=== PATIENT | female | born 1980 | race African-American/Black ===

== ENCOUNTER 2016-03-15 09:33 | Emergency (ER) | payer BC, OTHER ==
[2016-03-15 09:39] VITALS: BP 131/77; PULSE 70; TEMP 97.9; BMI 30.7
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
[2016-03-15 10:29] LABS: URINE APPEARANCE CLEAR; URINE BILIRUBIN NEGATIVE (NEGATIVE); URINE COLOR YELLOW; URINE GLUCOSE (UA) NEGATIVE (NEGATIVE); URINE KETONE NEGATIVE (NEGATIVE); URINE LEUK ESTERASE NEGATIVE (NEGATIVE); URINE NITRITE NEGATIVE (NEGATIVE); URINE PROTEIN NEGATIVE (NEGATIVE); URINE UROBILINOGEN NEGATIVE E.U./dl (0.2-1.0)
[2016-03-15 10:30] LABS: URINE BLOOD 1+ (NEGATIVE)
[2016-03-15] MEDS ORDERED: IBUPROFEN 600 MG TABLET (FP) PO ONE ×2 (10:32→10:34)
[2016-03-15 10:38] LABS: URINE BACTERIA RARE /hpf (NONE SEEN); URINE MUCUS RARE; URINE RBC 1 /hpf (0-3); URINE WBC 1 /hpf (3-5)
== END 2016-03-15 10:36 | disposition home or self-care (01) ==
LOC: JERFT 09:33
DX: M54.5 Low back pain (principal); V43.62XA Car passenger injured in collision with other type car in traffic accident, initial encounter; Y92.414 Local residential or business street as the place of occurrence of the external cause; Y93.89 Activity, other specified; Y99.8 Other external cause status
CPT/HCPCS: 81003; 81015; 84703; 99281-25

== ENCOUNTER 2016-07-11 23:48 | Emergency (ER) | payer BC, OTHER ==
[2016-07-11 23:59] VITALS: BP 147/88; PULSE 68; TEMP 97.1; BMI 31.6
--- NOTE | 2016-07-12 00:02 | PDOC ---
History of Present Illness - General Chief Complaint: Vaginal Bleeding Stated Complaint: VAGINAL BLEEDING Time Seen by Provider: 07/12/16 00:02 History Source: Patient Exam Limitations: No Limitations - History of Present Illness Travel History: No Initial Comments: 07/12/16 00:38 LMP ?May 31 IVF at [facility] Transfer one(1) egg on 07/02 OB: [facility] Informed on July 11 of +preg 36-year-old female with no past medical history presents to the emergency department complaining of one episode of vaginal spotting 2 hours ago prior to arriving to the emergency department. Patient denies fever, chills, nausea/ vomiting, chest pain, shortness of breath, abdominal pains, flank pains, urinary symptoms: Frequency/urgency/hesitancy, burning upon urination. Patient states after voiding, she wiped and noticed 2 spots of vaginal bloody spots. Timing/Duration: reports: other (vag spotting/subsided) Past History - Travel Traveled outside of the country in the last 30 days: No Close contact w/someone who was outside of country & ill: No - Past Medical History Allergies/Adverse Reactions: Allergies Allergy/AdvReac Type Severity Reaction Status Date / Time No Known Allergies Allergy Verified 07/11/16 23:52 Home Medications: Ambulatory Orders NK [No Known Home Medication] 07/12/16 - Immunization History Immunization Up to Date: Yes - Psycho/Social/Smoking Cessation Hx Anxiety: No Suicidal Ideation: No Smoking History: Never smoked Have you smoked in the past 12 months: No Information on smoking cessation initiated: No Hx Alcohol Use: No Drug/Substance Use Hx: No Substance Use Type: None Review of Systems - Review of Systems Able to Perform ROS?: Yes Comments:: 07/12/16 00:37 CONSTITUTIONAL: Absent: fever, chills, diaphoresis, generalized weakness, malaise, loss of appetite HEENT: Absent: rhinorrhea, nasal congestion, throat pain, throat swelling, difficulty swallowing, mouth swelling, ear pain, eye pain, visual Changes CARDIOVASCULAR: Absent: chest pain, loss of consciousness, palpitations, irregular heart rate, peripheral edema RESPIRATORY: Absent: cough, shortness of breath, dyspnea with exertion, orthopnea, wheezing, stridor, hemoptysis GASTROINTESTINAL: Absent: abdominal pain, abdominal distension, nausea, vomiting, diarrhea, constipation, melena, hematochezia GENITOURINARY: Vaginal spotting x1 x2h ago Absent: dysuria, frequency, urgency, hesitancy, hematuria, flank pain, genital pain MUSCULOSKELETAL: Absent: myalgia, arthralgia, joint swelling SKIN: Absent: rash, itching, pallor HEMATOLOGIC/IMMUNOLOGIC: Absent: easy bleeding, easy bruising, lymphadenopathy, frequent infections ENDOCRINE: Absent: unexplained weight gain, unexplained weight loss, heat intolerance, cold intolerance NEUROLOGIC: Absent: headache, focal weakness or paresthesias, dizziness, unsteady gait, seizure, mental status changes, bladder or bowel incontinence PSYCHIATRIC: Absent: anxiety, depression, suicidal or homicidal ideation, hallucinations. Is the patient limited Cook Islander proficient: No *Physical Exam - Vital Signs Last Vital Signs Temp Pulse Resp BP Pulse Ox 97.1 F L 68 20 147/88 98 07/11/16 23:52 07/11/16 23:52 07/11/16 23:52 07/11/16 23:52 07/11/16 23:52 - Physical Exam Comments: 07/12/16 00:37 GENERAL: Well developed, well nourished. Awake and alert. No acute distress. HEENT: Normocephalic, atraumatic. PERRLA, EOMI. No conjunctival pallor. Sclera are non- icteric. Moist mucous membranes. Oropharynx is clear. NECK: Supple. Full ROM. No JVD. Carotid pulses 2+ and symmetric, without bruits. No thyromegaly. No lymphadenopathy. CARDIOVASCULAR: Regular rate and rhythm. No murmurs, rubs, or gallops. Distal pulses are 2+ and symmetric. PULMONARY: No evidence of respiratory distress. Lungs clear to auscultation bilaterally. No wheezing, rales or rhonchi. ABDOMINAL: Soft. Non-tender. Non-distended. No rebound or guarding. No organomegaly. Normoactive bowel sounds. MUSCULOSKELETAL Normal range of motion at all joints. No bony deformities or tenderness. No CVA tenderness. EXTREMITIES: No cyanosis. No clubbing. No edema. No calf tenderness. SKIN: Warm and dry. Normal capillary refill. No rashes. No jaundice. NEUROLOGICAL: Alert, awake, appropriate. Cranial nerves 2-12 intact. No deficits to light touch and temperature in face, upper extremities and lower extremities. No motor deficits in the in face, upper extremities and lower extremities. Normoreflexic in the upper and lower extremities. Normal speech. Toes are down- going bilaterally. Gait is normal without ataxia. PSYCHIATRIC: Cooperative. Good eye contact. Appropriate mood and affect. Pelvic: External genitalia normal without lesions. Vaginal vault is clear without blood or discharge. Cervix is long and closed. No cervical motion tenderness. Uterus is nontender and normal in size. Adnexa are nontender and without masses. ED Treatment Course - LABORATORY CBC & Chemistry Diagram: 07/12/16 00:01 07/12/16 00:01 *DC/Admit/Observation/Transfer Diagnosis at time of Disposition: Threatened - Discharge Dispostion Disposition: HOME Condition at time of disposition: Stable Admit: No - Patient Instructions Printed Discharge Instructions: DI for Threatened Additional Instructions: As discussed, you had an ultrasound done this evening in the emergency department/transvaginal ultrasound to the specific. You do not have an ovarian torsion. There is no free fluid in your pelvic area. There is no visible intrauterine gestational sac but is may be because is an early or you had a spontaneous . The endometrial stripe is 12 mm thick. You don't have any adnexal mass. You a beta hCG is 159.6. You need a repeat beta hCG in 48 hours. 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
[2016-07-12 00:42] LABS: BASOPHIL 0.3 % (0-2.0); EOSINOPHIL 0.9 % (0-4.5); MCHC 33.4 g/dl (32.0-36.0); MEAN PLT VOLUME 9.7 fl (7.5-11.1); NEUTROPHILS 47.8 % (42.8-82.8); PLATELET COUNT 187 K/MM3 (134-434); RDW 12.9 % (11.6-15.6); WHITE BLOOD COUNT 6.3 K/mm3 (4.0-10.0)
[2016-07-12 01:03] LABS: URINE APPEARANCE CLEAR; URINE BILIRUBIN NEGATIVE (NEGATIVE); URINE BLOOD NEGATIVE (NEGATIVE); URINE COLOR STRAW; URINE GLUCOSE (UA) NEGATIVE (NEGATIVE); URINE KETONE NEGATIVE (NEGATIVE); URINE LEUK ESTERASE NEGATIVE (NEGATIVE); URINE NITRITE NEGATIVE (NEGATIVE); URINE PROTEIN NEGATIVE (NEGATIVE); URINE UROBILINOGEN NEGATIVE E.U./dl (0.2-1.0)
[2016-07-12 01:04] LABS: ALBUMIN 3.3 g/dl (3.4-5.0); ANION GAP 10 (8-16); BILIRUBIN,TOTAL 0.2 mg/dL (0.2-1.0); CO2 23 mmol/L (21-32); COCKROFT - GAULT 119.8245; CREATININE 0.9 mg/dL (0.55-1.02); GLUCOSE,RANDOM 114 mg/dL (74-106); SGOT/AST 17 U/L (15-37); SGPT/ALT 27 U/L (12-78)
[2016-07-12 01:07] LABS: ALK PHOS 55 U/L (45-117)
== END 2016-07-12 03:52 | disposition home or self-care (01) ==
LOC: JER 23:48
DX: O20.0 Threatened abortion (principal); Z3A.01 Less than 8 weeks gestation of pregnancy
CPT/HCPCS: 36415; 76817-TC; 80053; 81003; 84702; 85025; 86850; 86900; 86901; 99282-25

== ENCOUNTER 2016-12-01 02:54 | Emergency (ER) | payer BC, OTHER ==
[2016-12-01] MEDS ORDERED: SODIUM CHLORIDE 0.9% 1000 ML INFUS.BAG IV ONE (03:08)
[2016-12-01] MEDS ORDERED: ONDANSETRON 4 MG/2 ML VIAL IVPUSH ONE (03:08)
[2016-12-01] MEDS ORDERED: FAMOTIDINE 20 MG/50 ML IVPB 50 ML IVPB ONE ×2 (03:14→03:38)
[2016-12-01] MEDS ORDERED: DICYCLOMINE HCL 20 MG/2 ML AMPUL IM ONE (03:14)
[2016-12-01] MEDS ORDERED: PANTOPRAZOLE SODIUM 40 MG in SODIUM CHLORIDE 100 ML IVPB ONE (03:14)
--- NOTE | 2016-12-01 03:14 | PDOC ---
History of Present Illness - General Stated Complaint: NAUSEA/VOMITING/ABDOMINAL PAIN Time Seen by Provider: 12/01/16 03:07 - History of Present Illness Initial Comments: 12/01/16 03:50 CHIEF COMPLAINT: abd pain, vomiting HISTORY OF PRESENT ILLNESS: 36 yo F with no significant PMH presents to ED with abdominal pain and vomiting since 5 pm . Patient states she was "fine this morning" and went to [facility] around 1-2 pm, and when she returned home she began feeling sick and started vomiting persistently with worsening abdominal pain throughout the evening. Patient denies any recent travel or sick contacts. PAST MEDICAL HISTORY: Denies past medical history FAMILY HISTORY: Denies SOCIAL HISTORY:Denies tobacco, alcohol, illicit drug use. SURGICAL HISTORY: Denies ALLERGIES: No known drug allergies REVIEW OF SYSTEMS General/Constitutional: Denies fever or chills. Denies weakness, weight change. HEENT: Denies change in vision. Denies ear pain or discharge. Denies sore throat. Cardiovascular: Denies chest pain or shortness of breath. Respiratory: Denies cough, wheezing, or hemoptysis. Gastrointestinal: Denies nausea, vomiting, diarrhea or constipation. Denies rectal bleeding. Genitourinary: Denies dysuria, frequency, or change in urination. Musculoskeletal: Denies joint or muscle swelling or pain. Denies neck or back pain. Skin and breasts: Denies rash or easy bruising. PHYSICAL EXAM General Appearance: Uncomfortable appearing, moaning and crying in pain. HEENT: EOMI, PERRLA. No photophobia, scleral icterus. Neck: Supple. Trachea midline. No tenderness, rigidity, carotid bruit, stridor , lymphadenopathy, or thyromegaly. Respiratory/Chest: Lungs CTAB. Cardiovascular: RRR. S1, S2. Gastrointestinal/Abdominal: Diffuse tenderness to entire abdomen. Normal bowel sounds. Abdomen soft, non-distended. No organomegaly, pulsatile mass, guarding , hernia, hepatomegaly, splenomegaly. Musculoskeletal/Extremities: Normal inspection. FROM of all extremities, normal capillary refill. Pelvis Stable. No CVA tenderness. No tenderness to extremities, pedal edema, swelling, erythema or deformity. Integumentary: Appropriate color, dry, warm. No cyanosis, erythema, jaundice or rash Neurologic: electric lineman II-XII intact. Fully oriented, alert. Appropriate mood/affect. Motor strength 5/5. No appreciable EOM palsy, facial droop or sensory deficit. 12/01/16 04:17 Past History - Past Medical History Allergies/Adverse Reactions: Allergies Allergy/AdvReac Type Severity Reaction Status Date / Time No Known Allergies Allergy Verified 12/01/16 03:25 Home Medications: Ambulatory Orders Famotidine [Pepcid] 20 mg PO DAILY #7 tablet 12/01/16 Loperamide HCl/Simethicone [Imodium Multi-Symptom Rel Cplt] 1 each PO BID PRN # 14 tablet 12/01/16 Ondansetron [Zofran *Odt*] 8 mg SL TID PRN #21 od.tablet 12/01/16 Anemia: No Asthma: No Cancer: No Cardiac Disorders: No CVA: No COPD: No DVT: No Dementia: No Diabetes: No Dialysis: No GI Disorders: No Disorders: No HTN: No Hypercholesterolemia: No Kidney Stones: No Liver Disease: No Psychiatric Problems: No Seizures: No Thyroid Disease: No Lung CA: No - Surgical History Abdominal Surgery: No Appendectomy: No Cardiac Surgery: No Cholecystectomy: No Gastric Stapling: No GI Surgery: No Lung Surgery: No Neurologic Surgery: No - Reproductive History (#): 1 Para: 0 - Immunization History Immunization Up to Date: Yes - Suicide/Smoking/Psychosocial Hx Smoking History: Never smoked Have you smoked in the past 12 months: No Hx Alcohol Use: No Drug/Substance Use Hx: No Substance Use Type: None ED Treatment Course - LABORATORY CBC & Chemistry Diagram: 12/01/16 03:30 12/01/16 03:30 Medical Decision Making - Medical Decision Making 12/01/16 04:19 36 yo F with no significant PMH presents to ED with abdominal pain and vomiting since 5 pm . -CBC, CMP, lipase, beta hcg -IVF, Protonix, Pepcid, Zofran -Maalox po Labs unremarkable. Patient reassessed; at this time she is calmly speaking and states she is feeling better. *DC/Admit/Observation/Transfer Diagnosis at time of Disposition: Food poisoning Qualifiers: Encounter type: initial encounter Injury intent: accidental or unintentional Qualified Code(s): T62.91XA - Toxic effect of unspecified noxious substance eaten as food, accidental (unintentional), initial encounter - Discharge Dispostion Disposition: HOME Condition at time of disposition: Stable Admit: No - Prescriptions Prescriptions: Loperamide HCl/Simethicone [Imodium Multi-Symptom Rel Cplt] 1 each PO BID PRN # 14 tablet PRN Reason: Diarrhea Famotidine [Pepcid] 20 mg PO DAILY #7 tablet Ondansetron [Zofran *Odt*] 8 mg SL TID PRN #21 od.tablet PRN Reason: Nausea And/Or Vomiting - Patient Instructions Printed Discharge Instructions: DI for Diarrhea and Traveler's Diarrhea -- Adult, DI for Vomiting -- Adult, DI for Food Poisoning Additional Instructions: Please take medications as prescribed. Follow up with your primary care doctor by the end of the week. As discussed, if your vomiting and diarrhea persists despite medications, or you develop fever, chills, or any new or worsening symptoms, please return to the ER. - Post Discharge Activity Forms/Work/School Notes: Back to Work
[2016-12-01 03:25] VITALS: BP 155/102; PULSE 75; TEMP 97.5; BMI 34.9
[2016-12-01] MEDS ORDERED: PANTOPRAZOLE SODIUM 100 ML IVPB ONE (03:37)
[2016-12-01] MEDS ORDERED: ONDANSETRON 4 MG/2 ML VIAL ONE (03:38)
[2016-12-01 03:41] LABS: BASOPHIL 0.2 % (0-2.0); MCH 30.1 pg (25.7-33.7); MCHC 33.7 g/dl (32.0-36.0); MEAN CELL VOLUME 89.3 fl (80-96); NEUTROPHILS 79.3 % (42.8-82.8); PLATELET COUNT 187 K/MM3 (134-434); RDW 13.6 % (11.6-15.6); WHITE BLOOD COUNT 5.1 K/mm3 (4.0-10.0)
[2016-12-01] MEDS ORDERED: MAG HYDROX/AL HYDROX/SIMETH 30 ML UNIT-DOSE CUP PO ONE (03:50)
[2016-12-01 04:03] LABS: ALBUMIN 3.9 g/dl (3.4-5.0); ANION GAP 11 (8-16); BILIRUBIN,TOTAL 0.3 mg/dL (0.2-1.0); CALCIUM 9.3 mg/dL (8.5-10.1); CO2 24 mmol/L (21-32); GLUCOSE,RANDOM 126 mg/dL (74-106); SGOT/AST 24 U/L (15-37); SGPT/ALT 31 U/L (12-78); TOT PROT 7.8 g/dl (6.4-8.2)
[2016-12-01 04:04] LABS: ALK PHOS 48 U/L (45-117)
[2016-12-01] MEDS ORDERED: MAG HYDROX/AL HYDROX/SIMETH 30 ML UNIT-DOSE CUP ONE (04:14)
== END 2016-12-01 05:30 | disposition home or self-care (01) ==
LOC: JER 02:54 → SUPCPDRO 02:54 → JER 05:30
PROC: 3E033GC Introduction of Other Therapeutic Substance into Peripheral Vein, Percutaneous Approach (ICD-10-PCS; principal; 2016-12-01)
PROC: 3E033GC Introduction of Other Therapeutic Substance into Peripheral Vein, Percutaneous Approach (ICD-10-PCS; 2016-12-01)
PROC: 3E033GC Introduction of Other Therapeutic Substance into Peripheral Vein, Percutaneous Approach (ICD-10-PCS; 2016-12-01)
DX: T62.8X4A Toxic effect of other specified noxious substances eaten as food, undetermined, initial encounter (principal)
CPT/HCPCS: 36415; 80053; 83690; 84702; 85025; 99282-25

== ENCOUNTER 2017-03-09 13:16 | Emergency (ER) | payer BC, OTHER ==
[2017-03-09 13:22] VITALS: TEMP 98.4; BMI 31.6
--- NOTE | 2017-03-09 14:10 | PDOC ---
Attending Attestation - HPI HPI: 03/09/17 14:50 The patient is a 36 year old female with a significant PMH of ectopic two months ago who presents to the emergency department with vaginal pain and mild abdominal pain for the past several days. The patient is unable to describe the vaginal pain that is worsened by sitting down. She describes the vaginal pain as intermittent and pressure-like. 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 The patient states her last menstrual period was on 02/14. The patient is also complaining of urinary urgency and frequency, but no hematuria. The patient denies abdominal pain, chest pain, shortness of breath, headache and dizziness. Denies fever, chills, nausea, vomit, diarrhea and constipation. Denies vaginal discharge and hematuria. Allergies: NKA Past surgical history: None reported. Social history: No reported alcohol, cigarette, or drug use. - Physicial Exam PE: 03/09/17 14:50 Vitals: Triage vital signs reviewed General Appearance: No acute distress, well nourished, well developed Head: Atraumatic Eyes: Pupils equal reactive round, extraocular movement intact Chest Wall: Nontender Cardiac: Regular rate and rhythm, no murmurs, no rubs, no gallops Lungs: Clear to auscultation bilateral, good air movement bilaterally Abdomen: (+) Suprapubic tenderness. Soft, nondistended, normal bowel sounds, nontender to palpation Genitourinary: (+) Vaginal tenderness. (+) Os is closed. (+) White discharge in the vaginal canal. (+) Erythematous canal. Extremities: Full range of motion to all extremities, no cyanosis, clubbing, or edema Skin: Warm and dry, no rashes or lesions, no rash, no petechiae Neuro: AOX3; Cranial Nerves 2-12 grossly intact, Strength intact to all extremities, Sensation intact to all extremities, gait normal Psych: Normal mood, normal affect - Medical Decision Making 03/09/17 14:56 The patient is a 36 year old female with a significant PMH of ectopic two months ago who presents to the emergency department with vaginal pain for the past several days. Plan: Labs: HCG Qual, UA Meds: Ibuprofen Microbiology: Urine culture <Amanda Copeland - Last Filed: 03/09/17 14:58> - Resident Resident Name: Josephine,Aurelio - ED Attending Attestation I have performed the following: I have examined & evaluated the patient, The case was reviewed & discussed with the resident, I agree w/resident's findings & plan, Exceptions are as noted - Medical Decision Making 03/09/17 16:44 History and examination consistent with moderate yeast infection. Urinalysis clean no evidence of UTI patient not We'll treat with three-day course of sulconazole patient will follow-up with her PLANT CYTOLOGIST tomorrow Findings, need for follow-up, strict return instructions discussed with patient. <Andriy Anderson - Last Filed: 03/09/17 16:45>
--- NOTE | 2017-03-09 14:15 | PDOC ---
History of Present Illness - General Chief Complaint: Vaginal Sxs Stated Complaint: VAGINAL PAIN Time Seen by Provider: 03/09/17 14:09 - History of Present Illness Initial Comments: 03/09/17 14:42 The patient is a 36 year old female with a history of an ectopic 2 months prior to presentation who presents for evaluation of vaginal pain. The patient reports a several day history of vaginal discomfort that is poorly described and worsens with sitting prompting her presentation to the ED. She reports some discomfort with urination as well. She notes some lower abdominal discomfort as well that she describes as a pressure. She denies fevers, chills , SOB, chest pain, nausea, vomiting, or changes with bowel movements. She denies vaginal discharge or vaginal bleeding and notes that her LMP was 12. Past History - Past Medical History Allergies/Adverse Reactions: Allergies Allergy/AdvReac Type Severity Reaction Status Date / Time No Known Allergies Allergy Verified 03/09/17 13:22 Home Medications: Ambulatory Orders Fluconazole 150 mg PO ONCE #2 tablet 03/09/17 NK [No Known Home Medication] 03/09/17 Anemia: No Asthma: No Cancer: No Cardiac Disorders: No CVA: No COPD: No DVT: No Dementia: No Diabetes: No Dialysis: No GI Disorders: No Disorders: No HTN: No Hypercholesterolemia: No Kidney Stones: No Liver Disease: No Psychiatric Problems: No Seizures: No Thyroid Disease: No Lung CA: No - Surgical History Abdominal Surgery: No Appendectomy: No Cardiac Surgery: No Cholecystectomy: No Gastric Stapling: No GI Surgery: No Lung Surgery: No Neurologic Surgery: No - Reproductive History (#): 1 Para: 0 - Immunization History Immunization Up to Date: Yes - Suicide/Smoking/Psychosocial Hx Smoking History: Never smoked Have you smoked in the past 12 months: No Information on smoking cessation initiated: No Hx Alcohol Use: No Drug/Substance Use Hx: No Substance Use Type: None Review of Systems - Review of Systems Comments:: 03/09/17 14:49 Constitutional: No fevers, chills, fatigue, malaise HEENT: No Rhinorrhea, nasal congestion, visual changes Cardiovascular: No chest pain, syncope, palpitations, lightheadedness Respiratory: No Cough, SOB, Hemoptysis, Gastrointestinal: Lower abdominal discomfort. No Nausea, Vomiting, Constipation , Diarrhea, Melena Genitourinary: Vaginal pain. No Dysuria, Frequency, Urgency, Hesitancy, Hematuria, Flank pain Musculoskeletal: No Myalgia, arthralgia Skin: No rashes, bruising, pallor Neurologic: No Headache, Dizziness, Numbness, Weakness, or Tingling Psychiatric: No Hallucinations. No SI or HI *Physical Exam - Vital Signs Last Vital Signs Temp Pulse Resp BP Pulse Ox 98.4 F 73 18 144/84 99 03/09/17 13:18 03/09/17 13:18 03/09/17 13:18 03/09/17 13:18 03/09/17 13:18 - Physical Exam Comments: 03/09/17 14:49 General Appearance: Nourished. No Apparent Distress HEENT: EOMI, [place]. No Pharyngeal Erythema, Tonsillar Exudate, Tonsillar Erythema Neck: No Cervical Lymphadenopathy Respiratory/Chest: Lungs Clear, Normal Breath Sounds. No Crackles, Rales, Rhonchi, Wheezing Cardiovascular: Regular Rhythm, Regular Rate. No Murmur, Gallops, Rubs Gastrointestinal/Abdominal: Normal Bowel Sounds, Soft. Mild Suprapubic tenderness on exam. No Guarding, Rebound, Genital Exam: Normal external exam. Closed Cervical Os with milky cottage cheese like discharge. Tenderness with bimanual exam. No CMT or adenexal tenderness. Musculoskeletal: No CVA Tenderness Extremity: Normal Capillary Refill Integumentary: Normal Color, Dry, Warm Neurologic: Fully Oriented, Alert, Normal Mood/Affect, Normal Response, Medical Decision Making - Medical Decision Making 03/09/17 14:53 The patient is a 36 year old female with a history of an ectopic 2 months prior to presentation who presents for evaluation of vaginal pain. Differential includes but is not limited to: BV, yeast infection, UTI. Given the patient's physical exam, it is likely her symptoms are due to a yeast infection and we will treat her as such with fluconazole. We will send a ua to evaluate for other etiologies. We will continue to monitor and reassess. *DC/Admit/Observation/Transfer Diagnosis at time of Disposition: Yeast infection - Discharge Dispostion Disposition: HOME Condition at time of disposition: Good - Prescriptions Prescriptions: Fluconazole 150 mg PO ONCE #2 tablet - Referrals - Patient Instructions Printed Discharge Instructions: DI for Vaginal Yeast Infection Additional Instructions: Please return to the ER if you experience concerning or worsening symptoms including worsening pain, fevers, or worsening abdominal pain. Your symptoms are likely due to a Yeast infection. We have sent a prescription to the pharmacy to help treat your symptoms. Please take 1 pill every 72 hours for 2 more doses. You received your first dose here in the ER and your next one should be on 03/12. Please call to schedule a follow up appointment with your CLOTH FINISHING RANGE BACK TENDER within 2-3 days to discuss further management of your symptoms. - Post Discharge Activity
[2017-03-09] MEDS ORDERED: IBUPROFEN 600 MG TABLET (FP) PO ONE ×2 (14:53→14:59)
[2017-03-09] MEDS ORDERED: FLUCONAZOLE 50 MG TABLET PO ONE (14:58)
[2017-03-09 14:59] LABS: URINE APPEARANCE CLEAR; URINE BILIRUBIN NEGATIVE (NEGATIVE); URINE BLOOD NEGATIVE (NEGATIVE); URINE COLOR STRAW; URINE GLUCOSE (UA) NEGATIVE (NEGATIVE); URINE KETONE NEGATIVE (NEGATIVE); URINE LEUK ESTERASE NEGATIVE (NEGATIVE); URINE NITRITE NEGATIVE (NEGATIVE); URINE PROTEIN NEGATIVE (NEGATIVE); URINE UROBILINOGEN NEGATIVE mg/dL (0.2-1.0)
[2017-03-09 16:42] LABS: HCG,QUALITATIVE URINE NEGATIVE
[2017-03-09 16:59] VITALS: BP 134/65; PULSE 60
== END 2017-03-09 16:59 | disposition home or self-care (01) ==
LOC: JER 13:16
DX: B37.3 Candidiasis of vulva and vagina (principal)
CPT/HCPCS: 81003; 84703; 87086; 99281-25

== ENCOUNTER 2018-06-11 16:49 | Emergency (ER) | payer BC, OTHER ==
[2018-06-11 17:22] VITALS: BP 135/69; PULSE 82; TEMP 98.2; BMI 31.6
--- NOTE | 2018-06-11 17:24 | PDOC ---
Rapid Medical Evaluation Chief Complaint: Pain, Acute Medical Evaluation: Allergies Allergy/AdvReac Type Severity Reaction Status Date / Time No Known Allergies Allergy Verified 03/09/17 13:22 06/11/18 17:18 I have performed a brief in-person evaluation of this patient. The patient presents with a chief complaint of: 6 weeks preg with cramping , no bleeding Pertinent physical exam findings: Grav3 para0, SpAb 2 I have ordered the following: UA, BHcg, TandS, CBC The patient will proceed to the ED for further evaluation. 06/11/18 17:22 Discharge Disposition - Discharge Dispostion Condition at time of disposition: Stable - Referrals - Patient Instructions - Post Discharge Activity
[2018-06-11 18:26] LABS: URINE APPEARANCE CLEAR; URINE BILIRUBIN NEGATIVE (NEGATIVE); URINE COLOR DK YELLOW; URINE GLUCOSE (UA) NEGATIVE (NEGATIVE); URINE KETONE NEGATIVE (NEGATIVE); URINE LEUK ESTERASE NEGATIVE (NEGATIVE); URINE NITRITE NEGATIVE (NEGATIVE); URINE PROTEIN NEGATIVE (NEGATIVE); URINE UROBILINOGEN 0.2 mg/dL (0.2-1.0)
[2018-06-11 18:34] LABS: BASO % 0.3 % (0-2.0); EOS % 1.2 % (0-4.5); HEMATOCRIT 39.5 % (32.4-45.2); HEMOGLOBIN 13.2 GM/dL (10.7-15.3); LYMPH % 35.6 % (8-40); MCH 31.2 pg (25.7-33.7); MCHC 33.5 g/dl (32.0-36.0); MEAN CELL VOLUME 92.9 fl (80-96); MONO % 7.5 % (3.8-10.2); NEUT % 55.4 % (42.8-82.8); PLATELET COUNT 175 K/MM3 (134-434); RBC 4.25 M/mm3 (3.60-5.2); RDW 13.9 % (11.6-15.6); WHITE BLOOD COUNT 5.7 K/mm3 (4.0-10.0)
[2018-06-11] MEDS ORDERED: SODIUM CHLORIDE 0.9% 1000 ML INFUS.BAG IV ONE (18:46)
--- NOTE | 2018-06-11 18:52 | PDOC ---
History of Present Illness - General Chief Complaint: Pain, Acute Stated Complaint: 6 WEEKS PREG/CRAMPING History Source: Patient Exam Limitations: No Limitations - History of Present Illness Initial Comments: 06/11/18 18:49 38 yo F3po currently 6 weeks ( LMp mid april exact date unknown) here with c/o pelvic cramping. no urinary dysuria, does report frequency. also c /o vaginal discharge clear, whitish, no vaginal itching, no concerns for STD. does have h/o questionable ectopic in past which was treated with methotrexate, and h/o pcos. nausea, no vomiting, no f.c no other complaints. Past History - Past Medical History Allergies/Adverse Reactions: Allergies Allergy/AdvReac Type Severity Reaction Status Date / Time No Known Allergies Allergy Verified 03/09/17 13:22 Home Medications: Ambulatory Orders Fluconazole 150 mg PO ONCE #2 tablet 03/09/17 NK [No Known Home Medication] 03/09/17 Anemia: No Asthma: No Cancer: No Cardiac Disorders: No CVA: No COPD: No DVT: No Dementia: No Diabetes: No Dialysis: No GI Disorders: No Disorders: No HTN: No Hypercholesterolemia: No Kidney Stones: No Liver Disease: No Psychiatric Problems: No Seizures: No Thyroid Disease: No Lung CA: No - Surgical History Abdominal Surgery: No Appendectomy: No Cardiac Surgery: No Cholecystectomy: No Gastric Stapling: No GI Surgery: No Lung Surgery: No Neurologic Surgery: No - Reproductive History (#): 1 Para: 0 - Immunization History Immunization Up to Date: Yes - Suicide/Smoking/Psychosocial Hx Smoking History: Never smoked Have you smoked in the past 12 months: No Hx Alcohol Use: No Drug/Substance Use Hx: No Substance Use Type: None *Physical Exam - Vital Signs Last Vital Signs Temp Pulse Resp BP Pulse Ox 98.2 F 82 16 135/69 100 06/11/18 17:19 06/11/18 17:19 06/11/18 17:19 06/11/18 17:19 06/11/18 17:19 - Physical Exam General Appearance: Yes: Appropriately Dressed Respiratory/Chest: positive: Lungs Clear, Normal Breath Sounds Cardiovascular: positive: Regular Rhythm, Regular Rate, S1, S2. negative: Edema Female Pelvic Exam: positive: normal external exam, cervical os closed, other ( scant vaginal discharge mucous vs. polyp in os. no blood no adnexal tenderness. ) Gastrointestinal/Abdominal: positive: Tender (mild suprapubic ttp. no rebound no guarding. ) ED Treatment Course - LABORATORY CBC & Chemistry Diagram: 06/11/18 18:00 - ADDITIONAL ORDERS Additional order review: Laboratory Results 06/11/18 18:00 Urine Color Dk yellow Urine Appearance Clear Urine pH 7.0 Ur Specific [place] 1.017 Urine Protein Negative Urine Glucose (UA) Negative Urine Ketones Negative Urine Blood Negative Urine Nitrite Negative Urine Bilirubin Negative Urine Urobilinogen 0.2 Ur Leukocyte Esterase Negative 06/11/18 18:00 RBC 4.25 MCV 92.9 MCHC 33.5 RDW 13.9 MPV 9.0 Neutrophils % 55.4 D Lymphocytes % 35.6 D Monocytes % 7.5 D Eosinophils % 1.2 D Basophils % 0.3 - RADIOLOGY Radiology Studies Ordered: Category Date Time Status TRANSVAGINAL US PREG [US] Stat Ultrasound 06/11/18 18:45 Ordered Medical Decision Making - Medical Decision Making 06/11/18 18:52 38 yo G3Po at 6 weeks with pelvic cramping. differential pains of , uti, ectopic, threatened ab. plan tvus, labs. 06/11/18 22:06 pt with 6 week , no detectable FHR, will pg dr engle, pt ob [phone]. message left for pt ob. awaiting callback. 06/11/18 22:30 d/w with covering dr Alvarez, covering for dr moulton, who states she was seen i [facility] today. will see her thursday. told to call to schedule. return for any problems or concerns. *DC/Admit/Observation/Transfer Diagnosis at time of Disposition: - Discharge Dispostion Disposition: HOME Condition at time of disposition: Stable - Referrals - Patient Instructions Printed Discharge Instructions: Medications and Additional Instructions: your ultrasound shows a intrauterine at 6 wks. they were not able to detect a heart rate today. you should follow up with DR Moulton. call to schedule. they have been notified of your visit to our emergency department today. return for any fever, severe pain or any concerns. - Post Discharge Activity
== END 2018-06-11 23:33 | disposition home or self-care (01) ==
LOC: JER 16:49
DX: O26.891 Other specified pregnancy related conditions, first trimester (principal); R10.30 Lower abdominal pain, unspecified; Z3A.01 Less than 8 weeks gestation of pregnancy
CPT/HCPCS: 36415; 76817-TC; 81003; 84702; 85025; 86850; 86900; 86901; 87491; 87591; 99283-25; J7030

== ENCOUNTER 2022-08-02 00:05 | Emergency (ER) | payer BC, OTHER ==
[2022-08-02 00:18] VITALS: BP 126/84; PULSE 52; RESP 16; TEMP 98.5; BMI 31.6
[2022-08-02] MEDS ORDERED: SODIUM CHLORIDE 1,000 ML IV STA ×2 (00:22→01:12)
[2022-08-02] MEDS ORDERED: CEFUROXIME AXETIL 500 MG TABLET PO ONE (01:01)
== END 2022-08-02 02:01 | disposition home or self-care (01) ==
LOC: FER 00:05
PROC: 3E0337Z Introduction of Electrolytic and Water Balance Substance into Peripheral Vein, Percutaneous Approach (ICD-10-PCS; principal; 2022-08-02)
PROC: 3E0337Z Introduction of Electrolytic and Water Balance Substance into Peripheral Vein, Percutaneous Approach (ICD-10-PCS; 2022-08-02)
DX: O21.9 Vomiting of pregnancy, unspecified (principal); Z3A.10 10 weeks gestation of pregnancy
CPT/HCPCS: 99284-25

== ENCOUNTER 2022-08-09 16:32 | Emergency (ER) | payer OTHER ==
[2022-08-09 17:10] VITALS: BP 127/86; PULSE 58; RESP 18; TEMP 97.7; BMI 31.6
[2022-08-09] MEDS ORDERED: SODIUM CHLORIDE 0.9% 500 ML INFUS.BAG IV ONE (17:15)
[2022-08-09 17:39] LABS: HEMATOCRIT 42.6 % (32.4-45.2); HEMOGLOBIN 14.3 G/dL (10.7-15.3); MCHC 33.7 g/dl (32.0-36.0); MEAN PLT VOLUME 9.4 fl (7.5-11.1); PLATELET COUNT 191.9 10^3/uL (134-434); RBC 4.48 10^6/uL (3.60-5.2); RDW 14.5 % (11.6-15.6); WHITE BLOOD COUNT 5.8 10^3/uL (4.0-10.8)
[2022-08-09 18:02] LABS: PLATELET ESTIMATE ADEQUATE
[2022-08-09 18:25] LABS: POTASSIUM 3.7 mmol/L (3.5-5.1)
[2022-08-09 18:29] LABS: CALCIUM 9.7 mg/dL (8.5-10.1)
[2022-08-09 18:30] LABS: ALBUMIN 3.7 g/dl (3.4-5.0); BLOOD UREA NITROGEN 10.8 mg/dL (7-18)
[2022-08-09 18:33] LABS: CREATININE 0.8 mg/dL (0.55-1.3)
[2022-08-09 18:34] LABS: BILIRUBIN,TOTAL 0.6 mg/dL (0.2-1); TOT PROT 7.6 g/dl (6.4-8.2)
[2022-08-09] MEDS ORDERED: SODIUM CHLORIDE 0.9% 1000 ML INFUS.BAG IV ONE (18:52)
[2022-08-09 19:03] LABS: EPITHELIAL CELLS RARE /hpf
== END 2022-08-09 19:56 | disposition home or self-care (01) ==
LOC: FER 16:32
DX: O21.9 Vomiting of pregnancy, unspecified (principal); O26.891 Other specified pregnancy related conditions, first trimester; R53.1 Weakness; R82.4 Acetonuria; Z3A.08 8 weeks gestation of pregnancy
CPT/HCPCS: 36415; 76815; 80053; 81003; 81015; 84702; 85025; 87086; 99284-25

== ENCOUNTER 2022-08-16 18:22 | Emergency (ER) | payer OTHER ==
[2022-08-16] MEDS ORDERED: DEXTROSE 5%-NORMAL SALINE 1,000 ML IV SCH (19:00)
[2022-08-16 19:07] VITALS: BP 144/77; PULSE 64; RESP 20; TEMP 98.3; BMI 31.5
[2022-08-16] MEDS ORDERED: SODIUM CHLORIDE 1,000 ML IV STA (20:51)
== END 2022-08-16 21:33 | disposition home or self-care (01) ==
LOC: FER 18:22
PROC: 3E0337Z Introduction of Electrolytic and Water Balance Substance into Peripheral Vein, Percutaneous Approach (ICD-10-PCS; principal; 2022-08-16)
DX: O21.9 Vomiting of pregnancy, unspecified (principal); Z3A.11 11 weeks gestation of pregnancy
CPT/HCPCS: 99284-25

== ENCOUNTER 2022-08-19 03:15 | Emergency (ER) | payer OTHER ==
[2022-08-19 03:44] VITALS: BP 130/82; PULSE 55; RESP 17; TEMP 98.1; BMI 28.2
[2022-08-19] MEDS ORDERED: LACTATED RINGERS SOLUTION 1000 ML INFUS.BAG IV ONE (03:55)
[2022-08-19] MEDS ORDERED: METOCLOPRAMIDE HCL INJECTION 10 MG/2 ML VIAL IVPUSH ONE ×2 (04:01→05:13)
[2022-08-19] MEDS ORDERED: DEXTROSE 5%-NORMAL SALINE 1,000 ML IV ONE (04:02)
[2022-08-19] MEDS ORDERED: ACETAMINOPHEN 1000 MG/100 ML BAG IVPB ONE (04:02)
[2022-08-19] MEDS ORDERED: METOCLOPRAMIDE HCL INJECTION 10 MG/2 ML VIAL ONE ×2 (04:03→05:07)
[2022-08-19] MEDS ORDERED: MAGNESIUM HYDROX 2400MG/30ML ORAL SUSPENSION 30 ML CUP PO ONE (04:13)
[2022-08-19] MEDS ORDERED: ACETAMINOPHEN INJECTION 100 ML IVPB ONE (04:14)
[2022-08-19 04:21] LABS: BASO % 0.5 % (0-2.0); EOS % 1.2 % (0-4.5); HEMATOCRIT 39.7 % (32.4-45.2); HEMOGLOBIN 13.5 GM/dL (10.7-15.3); LYMPH % 34.8 % (8-40); MCH 31.4 pg (25.7-33.7); MCHC 33.8 g/dl (32.0-36.0); MEAN CELL VOLUME 92.7 fl (80-96); MEAN PLT VOLUME 9.1 fl (7.5-11.1); MONO % 8.2 % (3.8-10.2); NEUT % 55.3 % (42.8-82.8); PLATELET COUNT 180 10^3/uL (134-434); RBC 4.29 M/mm3 (3.60-5.2); RDW 13.8 % (11.6-15.6); WHITE BLOOD COUNT 4.4 K/mm3 (4.0-10.0)
[2022-08-19] MEDS ORDERED: MAGNESIUM HYDROX 2400MG/30ML ORAL SUSPENSION 30 ML CUP ONE (05:19)
[2022-08-19 05:33] LABS: ALBUMIN 3.3 g/dl (3.4-5.0); BILIRUBIN,TOTAL 0.6 mg/dL (0.2-1); BLOOD UREA NITROGEN 7.6 mg/dL (7-18); CREATININE 0.7 mg/dL (0.55-1.3); TOT PROT 6.7 g/dl (6.4-8.2)
[2022-08-19] MEDS ORDERED: SODIUM CHLORIDE 0.9% 500 ML INFUS.BAG IV ONE (05:50)
[2022-08-19 06:02] LABS: URINE APPEARANCE Error; URINE BILIRUBIN NEGATIVE (NEGATIVE); URINE COLOR YELLOW; URINE GLUCOSE (UA) 3+ (NEGATIVE); URINE KETONE 1+ (NEGATIVE); URINE LEUK ESTERASE NEGATIVE (NEGATIVE); URINE NITRITE NEGATIVE (NEGATIVE); URINE PROTEIN NEGATIVE (NEGATIVE)
== END 2022-08-19 06:58 | disposition home or self-care (01) ==
LOC: JER 03:15
PROC: 3E033NZ Introduction of Analgesics, Hypnotics, Sedatives into Peripheral Vein, Percutaneous Approach (ICD-10-PCS; principal; 2022-08-19)
PROC: 3E0337Z Introduction of Electrolytic and Water Balance Substance into Peripheral Vein, Percutaneous Approach (ICD-10-PCS; 2022-08-19)
DX: O21.9 Vomiting of pregnancy, unspecified (principal); Z3A.11 11 weeks gestation of pregnancy
CPT/HCPCS: 36415; 80053; 81003; 83690; 84702; 85025; 87086; 99284-25

== ENCOUNTER 2022-08-20 22:53 | Emergency (ER) | payer OTHER ==
[2022-08-20 23:07] VITALS: BP 139/87; PULSE 62; RESP 18; TEMP 98.6; BMI 32.4
[2022-08-20] MEDS ORDERED: SODIUM CHLORIDE 0.9% 500 ML INFUS.BAG IV ONE (23:17)
[2022-08-20 23:52] LABS: BASO % 0.3 % (0-2.0); EOS % 0.9 % (0-4.5); HEMATOCRIT 38.6 % (32.4-45.2); HEMOGLOBIN 13.1 GM/dL (10.7-15.3); LYMPH % 28.7 % (8-40); MCH 31.5 pg (25.7-33.7); MEAN CELL VOLUME 92.5 fl (80-96); MONO % 6.8 % (3.8-10.2); NEUT % 63.3 % (42.8-82.8); RBC 4.17 M/mm3 (3.60-5.2); RDW 13.9 % (11.6-15.6); WHITE BLOOD COUNT 5.8 K/mm3 (4.0-10.0)
[2022-08-21 00:13] LABS: CALCIUM 9.2 mg/dL (8.5-10.1)
[2022-08-21 00:14] LABS: ALBUMIN 3.2 g/dl (3.4-5.0); BLOOD UREA NITROGEN 6.6 mg/dL (7-18); MAGNESIUM 1.8 mg/dL (1.8-2.4)
[2022-08-21 00:17] LABS: CREATININE 0.7 mg/dL (0.55-1.3); PHOSPHOROUS 3.6 mg/dL (2.5-4.9)
[2022-08-21 00:18] LABS: BILIRUBIN,TOTAL 0.9 mg/dL (0.2-1)
[2022-08-21 00:19] LABS: TOT PROT 6.9 g/dl (6.4-8.2)
[2022-08-21 00:20] LABS: PLATELET ESTIMATE NORMAL
[2022-08-21 00:21] LABS: MEAN PLT VOLUME 9.3 fl (7.5-11.1); PLATELET COUNT 177 10^3/uL (134-434)
[2022-08-21] MEDS ORDERED: MAGNESIUM HYDROX 2400MG/30ML ORAL SUSPENSION 30 ML CUP PO ONE (01:31)
[2022-08-21] MEDS ORDERED: SODIUM CHLORIDE 0.9% 500 ML INFUS.BAG IV ONE (01:32)
[2022-08-21] MEDS ORDERED: MAGNESIUM HYDROX 2400MG/30ML ORAL SUSPENSION 30 ML CUP ONE (01:38)
== END 2022-08-21 02:50 | disposition home or self-care (01) ==
LOC: JER 22:53
DX: O21.8 Other vomiting complicating pregnancy (principal); O99.611 Diseases of the digestive system complicating pregnancy, first trimester; K59.00 Constipation, unspecified; Z3A.11 11 weeks gestation of pregnancy
CPT/HCPCS: 36415; 76815; 80053; 83690; 83735; 84100; 84702; 85025; 99284-25

== ENCOUNTER 2022-08-24 19:16 | Emergency (ER) | payer OTHER ==
[2022-08-24 19:25] VITALS: TEMP 98.7; BMI 32.4
[2022-08-24] MEDS ORDERED: SODIUM CHLORIDE 1,000 ML IV ONE ×2 (19:35)
[2022-08-24 20:12] VITALS: BP 148/90; PULSE 83; RESP 17
[2022-08-24 20:17] LABS: HEMATOCRIT 41.1 % (32.4-45.2); HEMOGLOBIN 14.1 G/dL (10.7-15.3); MCH 32.7 pg (25.7-33.7); MCHC 34.4 g/dl (32.0-36.0); MEAN CELL VOLUME 95.1 fl (80-96); MEAN PLT VOLUME 9.7 fl (7.5-11.1); PLATELET COUNT 188.3 10^3/uL (134-434); RBC 4.32 10^6/uL (3.60-5.2); RDW 13.9 % (11.6-15.6); WHITE BLOOD COUNT 4.4 10^3/uL (4.0-10.8)
[2022-08-24 20:19] LABS: BILIRUBIN,TOTAL 0.5 mg/dl (0.2-1); BLOOD UREA NITROGEN 9.1 mg/dl (7-18); CALCIUM 9.8 mg/dl (8.5-10.1); CREATININE 0.8 mg/dl (0.6-1.3); POTASSIUM 3.7 mmol/L (3.5-5.1); SGOT/AST 14.8 U/L (15-37); TOT PROT 6.5 g/dl (6.4-8.2)
== END 2022-08-24 21:26 | disposition home or self-care (01) ==
LOC: FER 19:16
PROC: 3E0337Z Introduction of Electrolytic and Water Balance Substance into Peripheral Vein, Percutaneous Approach (ICD-10-PCS; principal; 2022-08-24)
DX: O21.1 Hyperemesis gravidarum with metabolic disturbance (principal); Z3A.00 Weeks of gestation of pregnancy not specified
CPT/HCPCS: 36415; 80053; 81003; 85027; 99284-25

== ENCOUNTER 2022-08-27 15:23 | Emergency (ER) | payer OTHER ==
[2022-08-27 15:40] VITALS: BP 129/73; PULSE 60; RESP 16; TEMP 98; BMI 32.4
[2022-08-27] MEDS ORDERED: SODIUM CHLORIDE 0.9% 1000 ML INFUS.BAG IV ONE (16:10)
[2022-08-27] MEDS ORDERED: METOCLOPRAMIDE HCL INJECTION 10 MG/2 ML VIAL IVPUSH ONE ×3 (16:13→17:58)
[2022-08-27] MEDS ORDERED: METOCLOPRAMIDE HCL INJECTION 10 MG/2 ML VIAL ONE (16:22)
[2022-08-27 17:46] LABS: EPI CELLS 20 /uL (0-25.1); HYALINE CASTS 0 /uL (0-3.1); URINE APPEARANCE CLEAR; URINE BACTERIA 144 /uL (0-1359); URINE BILIRUBIN NEGATIVE (NEGATIVE); URINE COLOR YELLOW; URINE GLUCOSE (UA) NEGATIVE (NEGATIVE); URINE KETONE 1+ (NEGATIVE); URINE LEUK ESTERASE NEGATIVE (NEGATIVE); URINE NITRITE NEGATIVE (NEGATIVE); URINE PROTEIN 1+ (NEGATIVE); URINE RBC 37 /uL (0-23.9); URINE WBC 12 /uL (0-25.8)
[2022-08-27 17:47] LABS: BASO % 0.3 % (0-2.0); EOS % 0.9 % (0-4.5); HEMATOCRIT 41.3 % (32.4-45.2); HEMOGLOBIN 14.1 GM/dL (10.7-15.3); LYMPH % 33.1 % (8-40); MCH 31.5 pg (25.7-33.7); MCHC 34.1 g/dl (32.0-36.0); MEAN CELL VOLUME 92.5 fl (80-96); MEAN PLT VOLUME 9.7 fl (7.5-11.1); NEUT % 58.7 % (42.8-82.8); PLATELET COUNT 180 10^3/uL (134-434); RBC 4.47 M/mm3 (3.60-5.2); RDW 13.5 % (11.6-15.6); WHITE BLOOD COUNT 4.4 K/mm3 (4.0-10.0)
[2022-08-27 18:52] LABS: POTASSIUM 4.5 mmol/L (3.5-5.1)
[2022-08-27 18:54] LABS: CALCIUM 9.9 mg/dL (8.5-10.1)
[2022-08-27 18:55] LABS: ALBUMIN 3.4 g/dl (3.4-5.0); BLOOD UREA NITROGEN 6.2 mg/dL (7-18)
[2022-08-27 18:58] LABS: CREATININE 0.7 mg/dL (0.55-1.3)
[2022-08-27 19:00] LABS: BILIRUBIN,TOTAL 0.5 mg/dL (0.2-1); TOT PROT 7.2 g/dl (6.4-8.2)
== END 2022-08-27 20:25 | disposition home or self-care (01) ==
LOC: JER 15:23
PROC: 3E033GC Introduction of Other Therapeutic Substance into Peripheral Vein, Percutaneous Approach (ICD-10-PCS; principal; 2022-08-27)
DX: O21.0 Mild hyperemesis gravidarum (principal); Z3A.12 12 weeks gestation of pregnancy
CPT/HCPCS: 36415; 80053; 81003; 85025; 99284-25